=== PATIENT | male | born 1965 | race Caucasian/White ===

== ENCOUNTER → 2019-06-04 13:11 | Outpatient (CLI) | payer OTHER, SELFPAY ==
--- NOTE | 2019-06-04 13:17 | US_ITS ---
US thyroid HISTORY: Thyroid nodule ITS.REASON: NODULE OF NECK ORDERING PHYSICIAN: Yuni Montgomery APRN PATIENT AGE: 54 years Comparison: None FINDINGS: There is a complex cystic nodule at the isthmus of the thyroid gland measuring 2.2 x 2 x 1.3 cm. There is a somewhat irregular nodular area along the right aspect of the cystic lesion. There are some septations within the lesion as well. The right lobe is 4.6 x 1.5 x 2.3 cm. 6 x 3 mm complex isoechoic nodule upper pole A x 5 mm partially cystic nodule lower pole with solid component medially and inferiorly. 5 x 4 mm complex nodule inferior pole The left lobe is 4.7 x 1.5 x 2 cm. There is a complex 19 x 10 mm nodule in the mid polar region. A partially solid 9 x 5 mm nodule is present in the lower pole. IMPRESSION: 1. Enlarged thyroid gland. 2. 2.2 cm complex cystic nodule of the isthmus. 3. 19 x 10 mm mixed nodule in the mid polar region of the left lobe of the thyroid gland. Consider fine-needle aspiration of both the isthmus nodule and the left lobe nodule with sonographic guidance
== END ==
PROVIDERS: PCP Family Medicine; Visit Provider Nurse Practitioner Family
DX: R22.1 Localized swelling, mass and lump, neck (principal)
CPT/HCPCS: 76536

== ENCOUNTER → 2019-07-04 09:01 | Outpatient (CLI) | payer OTHER, SELFPAY ==
--- NOTE | 2019-07-04 | ECG_ITS ---
APPROVED REPORT Exam: Resting ECG HR:56 bpm ECG Measurements Heart Rate 56 AXES KS 134 P 71 QRSd 80 QRS 23 QT 426 T 42 QTc 411 <Conclusion> Sinus bradycardia Otherwise normal ECG Electronically signed by : Aryan Munoz, 07/08/2019 18:05:07
[2019-07-04 10:57] LABS: POC Glucose,Bedside 105 (70-110)
[2019-07-04 11:56] LABS: Free T4 (Free Thyroxine) 1.21 ng/dl (0.76-1.46); Thyroid Stimulating Hormone 0.44 uIU/ml (0.358-3.740)
[2019-07-05 11:46] LABS: Thyroid Peroxidase Antibodies 18 IU/mL (0-34)
[2019-07-09 10:31] LABS: Thyroid Stimulating Immunoglob <0.10 IU/L (0.00-0.55)
== END ==
PROVIDERS: PCP Family Medicine; Visit Provider Otolaryngology
DX: E01.0 Iodine-deficiency related diffuse (endemic) goiter (principal); E04.9 Nontoxic goiter, unspecified
CPT/HCPCS: 36415; 82962; 84439; 84443; 84445; 86376; 93005

== ENCOUNTER → 2019-08-06 14:13 | Outpatient (CLI) | payer OTHER, SELFPAY ==
--- NOTE | 2019-08-06 14:20 | US_ITS ---
PROCEDURE: US THYROID CLINICAL INDICATION: thyroid nodule/cyst COMPARISON: No exams were available for comparison FINDINGS: Right lobe: 4.7 x 1.3 x 1.9 cm. There are multiple cystic lesions of the right thyroid gland noted. The largest lesion is in the upper pole and measures 7.4 x 4.6 cm. The cysts do have some internal echoes some with internal septations. There are no previous exams available for comparison. Left lobe: 4.4 x 1.9 x 1.9 cm. There is a hypoechoic nodule in the mid polar region of the left lobe which is 1.9 x 0.8 cm with some cystic changes centrally. Old exams are not available for review to determine the stability of this nodule. There is a small cystic nodule in the upper pole at 4 mm a complex cystic nodule in the lower pole 0 at 10 mm. Isthmus: Slightly thickened at 5 mm Additional findings: IMPRESSION: Thyroid gland is enlarged. Multiple complex cystic nodules are present on the right the largest at 7 mm. A mixed cystic and solid nodules present on the left at 1.9 x 0.8 cm. Please correlate with old study to determine if these nodules are stable. The larger nodule in the mid polar region on the left is indeterminate. If this nodule has increased in size then, would consider ultrasound-guided fine needle aspiration Dictated by: Mynor Randhawa MD 08/07/2019 15:15 Electronically signed by Mynor Randhawa MD in [place] 08/07/2019 15:15
== END ==
PROVIDERS: PCP Family Medicine; Visit Provider Otolaryngology
DX: E01.0 Iodine-deficiency related diffuse (endemic) goiter (principal); E04.1 Nontoxic single thyroid nodule
CPT/HCPCS: 76536

== ENCOUNTER → 2019-08-29 09:11 | Outpatient (CLI) | payer OTHER, SELFPAY ==
--- NOTE | 2019-08-29 09:18 | US_ITS ---
PROCEDURE: US FNA THYROID CLINICAL INDICATION: Left thyroid nodule Indeterminate left thyroid nodule COMPARISON: US THYROID from 08/06/2019 TECHNIQUE: Following obtaining informed consent, using aseptic technique and local anesthesia with buffered lidocaine, fine-needle aspiration was performed of the nodule of interest using sonographic guidance. 3 passes were made into the nodule with a 25-gauge needle. Specimen was given to cytology. FINDINGS: CYTOLOGY: Negative for malignant cells. Consistent with a cystic colloid nodule IMPRESSION: Ultrasound-guided FNA left thyroid nodule shows benign findings. The patient tolerated the procedure well without evidence of immediate complications and left the ultrasound suite in stable condition. Dictated by: Mynor Randhawa MD 09/10/2019 09:10 Electronically signed by Mynor Randhawa MD in [place] 09/10/2019 09:10
== END ==
PROVIDERS: PCP Family Medicine; Visit Provider Otolaryngology
DX: D49.7 Neoplasm of unspecified behavior of endocrine glands and other parts of nervous system (principal)
CPT/HCPCS: 10005; 76942

== ENCOUNTER → 2020-03-13 12:42 | Outpatient (CLI) | payer OTHER, SELFPAY ==
--- NOTE | 2020-03-13 12:42 | US_ITS ---
PROCEDURE: US THYROID CLINICAL INDICATION: Goiter Follow-up thyroid nodules COMPARISON: US THYROID from 08/06/2019 US FNA THYROID from 08/29/2019 FINDINGS: Right lobe: 4.7 x 1.3 x 1.3 cm. There are multiple nodules on the right. The largest nodule is a septated cystic nodules present in the mid polar region at 9 mm similar to the previous exam. There are other smaller nodules. None appear significantly changed. Left lobe: 4.3 x 1.6 x 1.8 cm. Multiple cystic nodules are present. In the lower pole on the left there is an 18 mm solid-appearing nodule with some cystic component. This was the nodule that was biopsied previously which was benign. This is not significantly changed. Isthmus: Additional findings: IMPRESSION: No change multinodular goiter Dictated by: Mynor Randhawa MD 03/13/2020 21:04 Electronically signed by Mynor Randhawa MD in [place] 03/13/2020 21:04
== END ==
PROVIDERS: PCP Family Medicine; Visit Provider Otolaryngology
DX: E04.9 Nontoxic goiter, unspecified (principal)
CPT/HCPCS: 76536

== ENCOUNTER → 2020-09-08 08:06 | Outpatient (CLI) | payer OTHER, SELFPAY ==
[2020-09-08 09:19] LABS: Calcium 9.9 mg/dl (8.4-10.2)
[2020-09-08 09:37] LABS: Free T4 (Free Thyroxine) 1.12 ng/dl (0.78-2.19)
[2020-09-08 09:51] LABS: Thyroid Stimulating Hormone 1.02 uIU/mL (0.465-4.68)
--- NOTE | 2020-09-08 13:52 | US_ITS ---
PROCEDURE: US THYROID CLINICAL INDICATION: goiter 6 month follow up--- nodules seen bilaterally, enlarged bilaterally--- largest nodule on left lobe, he had a biopsy at this nodule that was negative for malignancy COMPARISON: US US THYROID from 08/06/2019 US US THYROID from 03/13/2020 FINDINGS: Right lobe: 1.2cm x 4.9cm x 1.7cm. There is a stable 3 mm hypoechoic nodule in the upper pole on the right. A complex cystic nodules present in the mid polar region at 8 x 5 mm unchanged. A 5 mm hypoechoic nodules present in the lower pole. A 6 mm complex nodule is present in the lower pole with central area of I so echogenicity unchanged. A spongiform nodules present in the lower pole measuring 8 mm unchanged. There is a heterogeneous area of echogenicity in the lower pole nonspecific near the isthmus of questionable significance. Continued follow-up suggested. Left lobe: 1.8cm x 4.4cm x 1.9cm. There is a 4 mm cystic nodule in the upper pole medially with a central solid component unchanged. 3 mm hypoechoic nodule upper pole medially unchanged. 5 mm hypoechoic nodule upper pole centrally unchanged. Spongiform/mixed nodule in the midpole at 22 x 16 mm unchanged. Hypoechoic nodule with central I so echogenicity lower pole at 10 mm unchanged Isthmus: Unremarkable Additional findings: IMPRESSION: No change multinodular goiter Dictated by: Mynor Randhawa MD 09/09/2020 11:18 Mynor Randhawa MD in [place] 09/09/2020 11:18
[2020-09-10 20:00] LABS: Calcitonin 7.1 pg/mL (0.0-8.4)
== END ==
PROVIDERS: PCP Family Medicine; Visit Provider Otolaryngology
DX: E04.9 Nontoxic goiter, unspecified (principal)
CPT/HCPCS: 36415; 76536; 82308; 82310; 84439; 84443

== ENCOUNTER → 2020-11-07 09:07 | Outpatient (CLI) | payer OTHER, SELFPAY ==
[2020-11-07 11:15] LABS: Coronavirus 19 IgG Antibody Negative (Negative); Coronavirus 19 IgM Antibody Negative (Negative)
== END ==
PROVIDERS: Visit Provider Internal Medicine Gastroenterology
DX: Z01.812 Encounter for preprocedural laboratory examination (principal); Z11.52 Encounter for screening for COVID-19; Z12.11 Encounter for screening for malignant neoplasm of colon; K92.1 Melena
CPT/HCPCS: 36415; 86328

== ENCOUNTER 2020-11-09 07:55 | Day surgery (SDC) | payer OTHER, SELFPAY ==
[2020-11-03 11:12] VITALS: BMI 25.1
[2020-11-09 08:19] VITALS: BP 134/91; PULSE 68; RESP 18; TEMP 36.2; O2SAT 99
[2020-11-09 08:53] VITALS: O2SAT 97
--- NOTE | 2020-11-09 08:56 | HMH.ANESCL ---
[facility] Anesthesia Checklist - Patient Identification Patient Identification: Arm Band - Structural Data Admitted From: Home Planned Operative Procedure/s: colonoscopy Consent for Planned Operative Procedure(s) Verified: Yes Verified Documents: Surgical Consent, History and Physical - NPO Status Verified Time NPO: 00:00 - Additional verifications Anesthesia Reactions: No - Airway Assessment C-Spine Mobility Assessed: Yes (mp2) TMJ Mobility Assessed: Yes Dentition: Good Dentition - Neurological Assessment Level of Consciousness: Awake, Alert - Anesthesia Plan Anesthesia Risk discussed: Yes Anesthesia Plan: Verified ASA Class: II Anesthesia Type: MAC [facility] History I have reviewed the patient's past medical history: Yes Medical History: Denies:: Cancer, Diabetes Mellitus Type 1, Diabetes Mellitus Type 2, Internal Pacemaker, MRSA, Seizures *Have you ever received a pneumonia vaccine?: No *Have you received a flu vaccine this season?: No Anesthesia experience/problems:: nac Laterality Cases: Left: Arthroscopy Shoulder Other Surgeries: No: Pacemaker Amputation: No - *Social History Last grade of school completed: High school graduate Smoking Status: Never smoker Tobacco Type: cigarettes # Packs/Day (cigarettes): 2 Alcohol Intake: never Alcohol Intake Frequency:: other Substance Use Type: marijuana *Occupational Status:: employed Housing: house Household Members: spouse, family *Travel in the last 8 weeks: None Family Hx:: Cancer, Hypertension, Coronary Artery Disease, Heart Attack
[2020-11-09 09:22] VITALS: BP 117/86; PULSE 65; RESP 12; TEMP 36.2; O2SAT 95
--- NOTE | 2020-11-09 09:22 | P.PCN_ITS ---
[facility] Procedure Note Procedure Note:: Colonoscopy Procedure Report: Colonoscopy with cold snare polypectomy Endoscopist: Shaheen Iverson II, MD Referring physician: Troy Garcia MD Date of Procedure: November 09, 2020 Equipment: Olympus 180 variable stiffness pediatric colonoscope Sedation: MAC sedation Indication: Mr. Elizalde is a 55-year-old gentleman who is here for diagnostic colonoscopy secondary to a positive Cologuard. The patient does have maternal half uncles with colon cancer. He reports no abdominal pain, weight loss, change in his bowel habits or rectal bleeding. This is his first colonoscopy. Procedure: Prior to the procedure, a history and physical exam was performed, and patient's medications and allergies were reviewed. The risks, benefits and alternatives of the sedation and procedure were discussed with the patient. All questions were answered and informed consent was obtained. The patient was brought to the procedure room. Patient identification and proposed procedure were verified by the physician and the nurse. The patient was placed in a left lateral decubitus position and the scope was passed under direct vision. Throughout the procedure, the patient's blood pressure, pulse, and oxygen saturations were monitored continuously. The colonoscopy was accomplished without difficulty. The patient tolerated the procedure well. Findings: On digital rectal examination there was normal rectal tone. There were no external hemorrhoids. The prostate was 2+, smooth, soft, symmetric without nodules. The colonoscope was introduced through the anal canal to the rectum and advanced to the cecum. The ileocecal valve and appendiceal orifice were identified. The scope was advanced a short distance into the ileum which appeared grossly normal. The scope was then withdrawn into the colon. There were 3 polyps (cecum x2 (3 and 4 mm) and rectosigmoid x1 (3 mm)) which were removed via cold snare polypectomy. There were a few scattered diverticuli in the distal descending and sigmoid colon. There were no other mucosal abnormalities identified. Upon retroflexion within the rectum there were grade 1 internal hemorrhoids.The preparation was excellent throughout with [place] Preparation Score of 9. The cecal time was 12 minutes. Impression: 1. Diminutive colonic polyps x3 2. Mild left-sided diverticulosis 3. Grade 1 internal hemorrhoids Plan: I will follow up the polyp pathology and recommend repeat colonoscopy again in 5 years based upon the polyp histology. I would encourage bulk fiber supplementation on a long-term daily maintenance basis.
[2020-11-09 09:32] VITALS: BP 129/76; PULSE 58; RESP 12; O2SAT 97
[2020-11-09 09:42] VITALS: BP 147/88; PULSE 66; RESP 16; O2SAT 98
[2020-11-09 09:52] VITALS: BP 146/94; PULSE 73; RESP 16; TEMP 36.2; O2SAT 98
== END 2020-11-09 10:12 | disposition home or self-care (01) ==
LOC: OUTP 07:59
PROVIDERS: PCP Family Medicine; Visit Provider Internal Medicine Gastroenterology
PROC: 0DJD8ZZ Inspection of Lower Intestinal Tract, Via Natural or Artificial Opening Endoscopic (ICD-10-PCS; CPT 45378; principal; 2020-11-09 09:00)
DX: K63.5 Polyp of colon (principal); K57.30 Diverticulosis of large intestine without perforation or abscess without bleeding; K64.0 First degree hemorrhoids; Z80.9 Family history of malignant neoplasm, unspecified; Z82.49 Family history of ischemic heart disease and other diseases of the circulatory system; Z82.3 Family history of stroke
CPT/HCPCS: 45385

== ENCOUNTER → 2021-08-27 09:53 | Outpatient (CLI) | payer OTHER, SELFPAY ==
[2021-08-27 11:08] LABS: Alanine Aminotransferase 34 U/L (12-78); Albumin Level 4.5 g/dl (3.5-5.0); Albumin/Globulin Ratio 1.7 (1.1-1.8); Alkaline Phosphatase 72 U/L (38-126); Anion Gap 11.6 mEq/L (5-15); Aspartate Amino Transferase 33 U/L (17-59); Bilirubin,Total 0.8 mg/dl (0.2-1.3); Blood Urea Nitrogen 11 mg/dl (9-20); Calcium 9.8 mg/dl (8.4-10.2); Carbon Dioxide 31 mmol/L (22.0-30.0); Chloride 102 mmol/L (98-107); Chol/HDL Ratio 2.9 (1-3.5); Cholesterol 173 mg/dl (140-200); Estimated Glomerular Filt Rate 139 ml/min (>60); GFR (African American) 169 ML/MIN (>60); Globulin 2.6 g/dL (1.3-3.2); Glucose 92 mg/dl (74-100); HDL Cholesterol 60 mg/dl (40-60); Potassium 4.6 mmoL/L (3.5-5.1); Sodium 140 mmol/L (136-145); Total Protein,Serum 7.1 g/dl (6.3-8.2); Triglycerides 123 mg/dl (30-150); VLDL Cholesterol 25 mg/dL (0-40)
[2021-08-27 11:19] LABS: Direct LDL Cholesterol 88.06 mg/dL (100-129)
[2021-08-27 11:37] LABS: Prostate Specific Ag Screen 0.9 ng/ml (0.0-4.0)
== END ==
PROVIDERS: Visit Provider Family Medicine
DX: Z00.00 Encounter for general adult medical examination without abnormal findings (principal); Z13.220 Encounter for screening for lipoid disorders; Z12.5 Encounter for screening for malignant neoplasm of prostate
CPT/HCPCS: 36415; 80053; 80061; G0103